=== PATIENT | female | born 1965 | race African-American/Black ===

== ENCOUNTER 2018-01-30 14:02 | Emergency (ER) | payer OTHER ==
[2018-01-30] MEDS ORDERED: IBUPROFEN 600 MG TAB PO STA (14:36)
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
--- NOTE | 2018-01-30 16:01 | XR ---
EXAMINATION TYPE: XR ankle complete RT DATE OF EXAM: 01/30/2018 COMPARISON: NONE HISTORY: 52-year-old female right ankle pain TECHNIQUE: 3 views FINDINGS: Soft tissue swelling about the ankle. Slight bony angulation along the lateral distal tibia and borde rline widening at the distal tibia-fibula overlap. Small posterior and plantar calcaneal spurs. No ac sandeep fracture, subluxation, or dislocation. IMPRESSION: 1. Soft tissue swelling about the ankle. 2. Some bony changes along the syndesmosis and borderline widening at the distal tibiofibular overlap suggests old high ankle sprain. 3. Small posterior and plantar heel spurs. No acute osseous abnormality seen.
[2018-01-30 16:04] VITALS: BP 140/72; PULSE 72; RESP 20; TEMP 98
== END 2018-01-30 16:04 | disposition home or self-care (01) ==
LOC: EC 14:02
DX: S93.401A Sprain of unspecified ligament of right ankle, initial encounter (principal); S96.911A Strain of unspecified muscle and tendon at ankle and foot level, right foot, initial encounter; F17.200 Nicotine dependence, unspecified, uncomplicated; X50.9XXA Other and unspecified overexertion or strenuous movements or postures, initial encounter; Y92.69 Other specified industrial and construction area as the place of occurrence of the external cause; Y93.E5 Activity, floor mopping and cleaning; Y99.0 Civilian activity done for income or pay
CPT/HCPCS: 99283

== ENCOUNTER 2018-05-16 09:29 | Emergency (ER) | payer OTHER ==
[2018-05-16 09:58] VITALS: TEMP 98.1
[2018-05-16] MEDS ORDERED: SODIUM CHLORIDE 0.9% 1,000 ML IV STA (10:34)
[2018-05-16] MEDS ORDERED: MECLIZINE 12.5 MG TAB PO STA (10:34)
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
[2018-05-16 11:01] LABS: Basophils % (A) 1 %; Eosinophils # (A) 0.2 k/uL (0-0.7); Eosinophils % (A) 6 %; HCT 38.1 % (34.0-46.0); HGB 13.1 gm/dL (11.4-16.0); Lymphocytes # (A) 1.5 k/uL (1.0-4.8); Lymphocytes % (A) 44 %; MCH 31.3 pg (25.0-35.0); MCHC 34.3 g/dL (31.0-37.0); MCV 91.2 fL (80.0-100.0); Mean Platelet Volume 7.4; Monocytes # (A) 0.3 k/uL (0-1.0); Monocytes % (A) 9 %; Neutrophils # (A) 1.2 k/uL (1.3-7.7); Neutrophils % (A) 37 %; Platelet Count 223 k/uL (150-450); RBC 4.18 m/uL (3.80-5.40); RDW 13.3 % (11.5-15.5); WBC 3.3 k/uL (3.8-10.6)
[2018-05-16 11:10] LABS: Appearance,Urine Cloudy (Clear); Bacteria,Urine Occasional /hpf; Bilirubin,Urine Negative (Negative); Blood,Urine Negative (Negative); Color,Urine Yellow; Glucose,Urine (UA) Negative (Negative); Ketones,Urine Negative (Negative); Leukocyte Esterase,Urine Small (Negative); Mucus,Urine Rare /hpf; Nitrite,Urine Negative (Negative); PH, Urine 6.5 (5.0-8.0); Protein,Urine Negative (Negative); Specific Gravity,Urine 1.015 (1.001-1.035); Squamous Epithelial Cell,Urine 6 /hpf (0-4); Urobilinogen,Urine <2.0 mg/dL (<2.0); WBC,Urine 3 /hpf (0-5)
[2018-05-16 11:12] LABS: Amphetamine Screen,Urine Not Detected (NotDetected); Barbiturate Screen,Urine Not Detected (NotDetected); Benzodiazepines Screen,Urine Not Detected (NotDetected); Cocaine Screen,Urine Not Detected (NotDetected); Methadone Screen, Urine Not Detected (NotDetected); Opiate Screen,Urine Not Detected (NotDetected); Oxycodone Screen, Urine Not Detected (NotDetected); Phencyclidine Screen,Urine Not Detected (NotDetected); Tricyclic Antidepressant,Urine Not Detected (NotDetected); Urn Cannabinoid Scrn Not Detected (NotDetected)
[2018-05-16 11:13] LABS: ALT 38 U/L (9-52); AST 26 U/L (14-36); Albumin 3.2 g/dL (3.5-5.0); Alkaline Phosphatase 30 U/L (38-126); Anion Gap 8 mmol/L; Blood Urea Nitrogen 10 mg/dL (7-17); Calcium 8.8 mg/dL (8.4-10.2); Carbon Dioxide 23 mmol/L (22-30); Chloride 110 mmol/L (98-107); Glucose 95 mg/dL (74-99); Potassium 4.1 mmol/L (3.5-5.1); Sodium 141 mmol/L (137-145); Total Bilirubin 0.6 mg/dL (0.2-1.3); Total Protein 6.3 g/dL (6.3-8.2)
--- NOTE | 2018-05-16 11:14 | XR ---
EXAMINATION TYPE: XR chest 2V DATE OF EXAM: 05/16/2018 COMPARISON: NONE TECHNIQUE: PA and lateral views submitted. HISTORY: Dizziness FINDINGS: The lungs are clear and there is no pneumothorax, pleural effusion, or focal pneumonia. IMPRESSION: 1. No acute process.
[2018-05-16 11:49] VITALS: BP 166/80; PULSE 59; RESP 20
== END 2018-05-16 12:20 | disposition home or self-care (01) ==
LOC: EC 09:29
DX: E86.0 Dehydration (principal); R19.7 Diarrhea, unspecified; R42 Dizziness and giddiness; R03.0 Elevated blood-pressure reading, without diagnosis of hypertension; F17.200 Nicotine dependence, unspecified, uncomplicated
CPT/HCPCS: 36415; 71046; 80053; 80306; 81001; 84484; 85025; 93005; 96360; 99284

== ENCOUNTER 2018-05-31 12:01 | Emergency (ER) | payer OTHER ==
[2018-05-31 12:39] VITALS: BP 130/74; PULSE 68; RESP 18; TEMP 98.4
[2018-05-31] MEDS ORDERED: LIDOCAINE 1% INJ 10MG/ML (20 ML MDV) SQ STA (12:58)
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
== END 2018-05-31 14:29 | disposition home or self-care (01) ==
LOC: EC 12:01
DX: L02.213 Cutaneous abscess of chest wall (principal); F17.200 Nicotine dependence, unspecified, uncomplicated; Z53.20 Procedure and treatment not carried out because of patient's decision for unspecified reasons
CPT/HCPCS: 87070; 87205; 99284

== ENCOUNTER 2018-09-16 08:16 | Emergency (ER) | payer OTHER ==
[2018-09-16 08:22] VITALS: BP 134/94; PULSE 78; RESP 18; TEMP 98.4
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
--- NOTE | 2018-09-16 09:06 | XR ---
EXAMINATION TYPE: XR chest 2V DATE OF EXAM: 09/16/2018 COMPARISON: Chest x-ray May 16, 2018 HISTORY: Cough. TECHNIQUE: Frontal and lateral views of the chest are obtained. FINDINGS: Poor inspiration is noted. There is no focal air space opacity, pleural effusion, or pneumo thorax seen. The cardiac silhouette size remains within normal limits. The osseous structures are intact. IMPRESSION: No suspicious acute infiltrate.
[2018-09-16] MEDS ORDERED: IBUPROFEN 600 MG STARTER PACK 4 TAB BTL PO STA (09:34)
== END 2018-09-16 09:48 | disposition home or self-care (01) ==
LOC: EC 08:16
DX: J40 Bronchitis, not specified as acute or chronic (principal); J32.9 Chronic sinusitis, unspecified; F17.200 Nicotine dependence, unspecified, uncomplicated
CPT/HCPCS: 71046; 87502; 99283

== ENCOUNTER 2018-11-25 23:17 | Emergency (ER) | payer OTHER ==
[2018-11-25 23:33] VITALS: RESP 18
[2018-11-25] MEDS ORDERED: KETOROLAC 30 MG/ML 1 ML VIAL IM STA (23:55)
[2018-11-25] MEDS ORDERED: SULFAMETH-TMP DS STARTER PACK 2 TAB BTL PO STA (23:58)
[2018-11-25] MEDS ORDERED: CEPHALEXIN 500MG STARTER PACK 4 CAP BTL PO STA (23:58)
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
[2018-11-26 00:10] VITALS: BP 158/79; PULSE 75; TEMP 98
== END 2018-11-26 00:09 | disposition home or self-care (01) ==
LOC: EC 23:17
DX: L73.9 Follicular disorder, unspecified (principal); F17.200 Nicotine dependence, unspecified, uncomplicated
CPT/HCPCS: 87070; 87205; 96372; 99284

== ENCOUNTER → 2018-11-27 | Outpatient (CLI) | payer OTHER ==
--- NOTE | 2018-11-27 15:51 | XR ---
Left forearm HISTORY: Pain 2 views of the left forearm There is cortical thickening at the proximal diaphyseal left ulnar compatible with patient's history of fracture and healing, there is slight lateral angulation. Osteoarthritic change is present within the elbow with marginal spurring present, hypertrophic changes suspected. Bone mineralization is othe rwise maintained. IMPRESSION: Findings compatible with patient's history of fracture as described. 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
== END | disposition home or self-care (01) ==
LOC: RADXRMAIN 15:01
PROVIDERS: ATTEND Internal Medicine
DX: M19.022 Primary osteoarthritis, left elbow (principal)

== ENCOUNTER → 2020-10-10 | Outpatient (CLI) | payer OTHER ==
--- NOTE | 2020-10-10 15:49 | XR ---
EXAMINATION TYPE: XR chest 2V DATE OF EXAM: 10/10/2020 COMPARISON: 09/16/2018 TECHNIQUE: PA and lateral views submitted. HISTORY: Shortness of breath FINDINGS: The lungs are clear and there is no pneumothorax, pleural effusion, or focal pneumonia. Coarsened in terstitium. Heart size normal. IMPRESSION: 1. Correlate for bronchitis or mild central interstitial pneumonitis.
== END | disposition home or self-care (01) ==
LOC: RADXRMAIN 15:32
PROVIDERS: ATTEND Family Medicine
DX: J40 Bronchitis, not specified as acute or chronic (principal)
CPT/HCPCS: 71046

== ENCOUNTER → 2020-10-17 | Outpatient (CLI) | payer BC, OTHER ==
--- NOTE | 2020-10-18 07:42 | ECHOF ---
Referral Reason:R94.31 abnormal EKG MEASUREMENTS -------- HEIGHT: 152.4 cm WEIGHT: 96.6 kg BP: RVIDd: 3.0 cm (< 3.3) IVSd: 1.2 cm (0.6 - 1.1) LVIDd: 4.8 cm (3.9 - 5.3) LVPWd: 1.2 cm (0.6 - 1.1) IVSs: 1.6 cm LVIDs: 2.5 cm LVPWs: 1.6 cm LA Diam: 4.0 cm (2.7 - 3.8) LAESV Index (A-L): 21.82 ml/m Ao Diam: 2.6 cm (2.0 - 3.7) AV Cusp: 1.5 cm (1.5 - 2.6) LA Diam: 4.2 cm (2.7 - 3.8) MV EXCURSION: 17.701 mm (> 18.000) MV EF SLOPE: 74 mm/s (70 - 150) EPSS: 0.2 cm MV E Gómez: 0.72 m/s MV DecT: 200 ms MV A Gómez: 0.81 m/s MV E/A Ratio: 0.89 RAP: 5.00 mmHg RVSP: 35.45 mmHg FINDINGS -------- Sinus rhythm. This was a technically good study. LV size, wall thickness and systolic function are normal, with an EF greater than 55%. The left ana tricular size is normal. The right ventricle is normal in size. Normal LA size by volume 22+/-6 ml/m2. The aortic valve is trileaflet, and appears structurally normal. No aortic stenosis or regurgitation. Mild mitral regurgitation is present. Mild tricuspid regurgitation present. There is borderline pulmonary artery hypertension. There is no pulmonic regurgitation present. The aortic root size is normal. There is no pericardial effusion. CONCLUSIONS -------- 1. LV size, wall thickness and systolic function are normal, with an EF greater than 55%. 2. The left ventricular size is normal. 3. The right ventricle is normal in size. 4. Normal LA size by volume 22+/-6 ml/m2. 5. The aortic valve is trileaflet, and appears structurally normal. No aortic stenosis or regurgitati on. 6. Mild mitral regurgitation is present. 7. Mild tricuspid regurgitation present. 8. There is borderline pulmonary artery hypertension. 9. There is no pulmonic regurgitation present. 10. The aortic root size is normal. 11. There is no pericardial effusion. TECHNICAL SALES ADVISOR: Dionne Martinez RDCS
== END ==
LOC: RADECHMAIN 13:47
PROVIDERS: ATTEND Family Medicine
DX: I08.1 Rheumatic disorders of both mitral and tricuspid valves (principal); I27.21 Secondary pulmonary arterial hypertension
CPT/HCPCS: 93306

== ENCOUNTER 2020-12-16 16:41 | Emergency (ER) | payer BC, OTHER ==
[2020-12-16 17:11] VITALS: RESP 18
[2020-12-16] MEDS ORDERED: MORPHINE SULFATE 4 MG/ML SYRINGE IM STA (18:01)
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
--- NOTE | 2020-12-16 18:41 | XR ---
EXAMINATION TYPE: XR hand complete LT DATE OF EXAM: 12/16/2020 COMPARISON: NONE HISTORY: Pain and swelling TECHNIQUE: 3 views FINDINGS: Metacarpals are intact. There is some soft tissue swelling on the dorsum of the hand. I see no fracture nor dislocation. The fingers are intact. There is minor spurring at the first carpometac arpal joint. IMPRESSION: Soft tissue swelling. No fracture seen.
[2020-12-16] MEDS ORDERED: ACET/COD 300 MG/30 MG STARTER PACK 6 TAB BTL PO STA (18:53)
[2020-12-16 19:29] VITALS: BP 118/75; PULSE 80; TEMP 98.5
== END 2020-12-16 19:15 | disposition home or self-care (01) ==
LOC: EC 16:41
DX: S60.222A Contusion of left hand, initial encounter (principal); M79.641 Pain in right hand; J45.909 Unspecified asthma, uncomplicated; F17.200 Nicotine dependence, unspecified, uncomplicated; Z79.899 Other long term (current) drug therapy; W22.8XXA Striking against or struck by other objects, initial encounter; Y99.0 Civilian activity done for income or pay
CPT/HCPCS: 82075; 99283